=== PATIENT | male | born 1975 | race Caucasian/White ===

== ENCOUNTER 2023-09-22 20:17 | Emergency (ER) | payer BC ==
[2023-09-22] MEDS ORDERED: NA CHLORIDE 0.9% 1,000 ML ONE (21:06)
[2023-09-22] MEDS ORDERED: ONDANSETRON 4 MG/2 ML VIAL ONE (21:06)
[2023-09-22] MEDS ORDERED: MORPHINE 4 MG/ML SYR ONE (21:06)
[2023-09-22 21:10] LABS: Absolute Basophils 0.1 K/uL (0-0.5); Absolute Eosinophils 0.2 K/uL (0-0.5); Absolute Lymphocytes (CBC) 2.3 K/uL (0.7-4.9); Absolute Monocytes 1.9 K/uL (0.1-1.3); Absolute Neutrophil 11.9 K/uL (1.8-8.0); Basophils % 0.8 % (0-1.3); Eosinophils % 1.2 % (0-4.4); Hematocrit 44.6 % (39.6-49.0); Hemoglobin 14.9 g/dL (13.6-17.9); Lymphocytes % 13.8 % (15.3-44.8); MCH 31.7 pg (27.0-35.0); MCHC 33.5 g/dL (32.0-36.0); MCV 94.6 fL (80-100); MPV 8.8 fL (7.6-11.3); Monocytes % 11.8 % (3.3-12.3); Neutrophils % 72.4 % (41.7-73.7); Platelets 275 thou/uL (152-406); RBC Red Blood Cell Count 4.71 M/uL (4.33-5.43); Red Cell Distribution Width 13.8 % (12.1-15.2)
[2023-09-22] MEDS ORDERED: CIPROFLOXACIN 400mg IV 400 MG/200 ML BAG IV ONE (21:18)
[2023-09-22] MEDS ORDERED: NA CHLORIDE 0.9% 50 ML ONE (21:18)
[2023-09-22] MEDS ORDERED: METRONIDAZOLE 500mg IVPB 500 MG/100 ML BAG IV ONE (21:18)
[2023-09-22] MEDS ORDERED: CEFTRIAXONE 2000 MG/VIAL ONE (21:18)
[2023-09-22 21:37] LABS: ALT/SGPT 21 U/L (16-61); Albumin 3.7 g/dL (3.4-5.0); Albumin/Globulin Ratio 0.8 (1.1-1.8); Alkaline Phosphatase 55 U/L (45-117); Anion Gap 7.7 mEq/L (5.0-15.0); BUN Blood Urea Nitrogen 21 mg/dL (7-18); Bicarbonate 29 mEq/L (21-32); Bilirubin Total 0.5 mg/dL (0.2-1.0); Globulin 4.9 g/dL (2.3-3.5); Glomerular Filtration Rate 65 ml/min (=/>90); Glucose Level 100 mg/dL (74-106); Lipase 36 U/L (13-75); Potassium 3.7 mEq/L (3.5-5.1); Protein, Total 8.6 g/dL (6.4-8.2); Sodium Level 136 mEq/L (136-145)
[2023-09-22 21:53] LABS: AST/SGOT < 10 U/L (15-37)
--- NOTE | 2023-09-22 22:43 | RAD REPORT ---
EXAM DESCRIPTION: CTAbdomen Pelvis W Contrast - 09/22/2023 10:24 pm CLINICAL HISTORY: Abdominal pain. ABD PAIN COMPARISON: <Comparisons> TECHNIQUE: Biphasic CT imaging of the abdomen and pelvis was performed with 100 ml non-ionic IV cont rast. All CT scans are performed using dose optimization technique as appropriate and may include automated exposure control or mA/KV adjustment according to patient size. FINDINGS: The lung bases are clear. The liver, spleen, pancreas, adrenal glands and kidneys are within normal limits. No bowel obstruction, free air, free fluid or abscess. 5 cm length of the sigmoid colon in the left l ower quadrant shows moderate surrounding inflammation. There is a large diverticulum present in the r egion. The appendix is normal. No evidence of significant lymphadenopathy. No suspicious bony findings. Small fat containing left inguinal hernia. IMPRESSION: Moderately abnormal 5 cm length of sigmoid colon in the left lower quadrant with moderat e surrounding inflammation may represent acute diverticulitis. Following appropriate treatment, colon oscopy would be recommended directly visualize this region of the colon and exclude underlying neopla ana.
[2023-09-22 22:46] LABS: Specific Gravity 1.023 (1.005-1.030); Urine Bilirubin NEGATIVE (Negative); Urine Blood Negative (Negative); Urine Clarity Clear (Clear); Urine Color Light-Yellow (Yellow); Urine Glucose NEGATIVE (Negative); Urine Ketones NEGATIVE (Negative); Urine Microscopic Reflex YN NO UMIC; Urine Nitrite NEGATIVE (Negative); Urine Protein NEGATIVE (Negative); Urine Urobilinogen Normal (Normal)
--- NOTE | 2023-09-22 22:48 | EDPHYS ---
Physician Documentation [facility] Name: Sergo Bloom Age: 48 yrs Sex: Male : 1975 Arrival Date: 09/22/2023 Time: 20:17 Bed 13 Private MD: SILVIA Physician Tanner Suarez HPI: 09/21 21:05 This 48 yrs old Male presents to ER via Ambulatory with complaints of don diverticulitis flare up. 21:05 The patient presents with abdominal pain in the left upper quadrant, in the left lower don quadrant, abdominal distention in the upper abdomen, in the lower abdomen. Onset: The symptoms/episode began/occurred 3 day(s) ago. The symptoms do not radiate. Associated signs and symptoms: none. Modifying factors: The symptoms are alleviated by nothing, the symptoms are aggravated by nothing. Severity of pain: At its worst the pain was moderate today, in the emergency department the pain is unchanged. The patient has experienced similar episodes in the past, a few times. Historical: - Allergies: 20:45 NSAIDS; tl4 - Home Meds: 20:45 pantoprazole oral [Active]; tl4 - PMHx: 20:45 Gastritis; tl4 - Immunization history:: Adult Immunizations unknown. - Infectious Disease History:: Denies. - Social history:: Smoking status: Patient denies any tobacco usage or history of. - Family history:: not pertinent. ROS: 21:05 Constitutional: Negative for fever, chills, and weight loss, Eyes: Negative for injury, don pain, redness, and discharge, ENT: Negative for injury, pain, and discharge, Neck: Negative for injury, pain, and swelling, Cardiovascular: Negative for chest pain, palpitations, and edema, Respiratory: Negative for shortness of breath, cough, wheezing, and pleuritic chest pain, Back: Negative for injury and pain, : Negative for injury, bleeding, discharge, and swelling, MS/Extremity: Negative for injury and deformity, Skin: Negative for injury, rash, and discoloration, Neuro: Negative for headache, weakness, numbness, tingling, and seizure, Psych: Negative for depression, anxiety, suicide ideation, homicidal ideation, and hallucinations, Allergy/Immunology: Negative for hives, rash, and allergies, Endocrine: Negative for neck swelling, polydipsia, polyuria, polyphagia, and marked weight changes, Hematologic/Lymphatic: Negative for swollen nodes, abnormal bleeding, and unusual bruising, 21:05 Abdomen/GI: Positive for abdominal pain, of the left lower quadrant, Exam: 21:05 Constitutional: This is a well developed, well nourished patient who is awake, alert, don and in no acute distress. Head/Face: Normocephalic, atraumatic. Eyes: Pupils equal round and reactive to light, extra-ocular motions intact. Lids and lashes normal. Conjunctiva and sclera are non-icteric and not injected. Cornea within normal limits. Periorbital areas with no swelling, redness, or edema. ENT: Nares patent. No nasal discharge, no septal abnormalities noted. Tympanic membranes are normal and external auditory canals are clear. Oropharynx with no redness, swelling, or masses, exudates, or evidence of obstruction, uvula midline. Mucous membranes moist. Neck: Trachea midline, no thyromegaly or masses palpated, and no cervical lymphadenopathy. Supple, full range of motion without nuchal rigidity, or vertebral point tenderness. No Meningismus. Chest/axilla: Normal chest wall appearance and motion. Nontender with no deformity. No lesions are appreciated. Cardiovascular: Regular rate and rhythm with a normal S1 and S2. No gallops, murmurs, or rubs. Normal PMI, no JVD. No pulse deficits. Respiratory: Lungs have equal breath sounds bilaterally, clear to auscultation and percussion. No rales, rhonchi or wheezes noted. No increased work of breathing, no retractions or nasal flaring. Back: No spinal tenderness. No costovertebral tenderness. Full range of motion. Male : Normal genitalia with no discharge or lesions. Skin: Warm, dry with normal turgor. Normal color with no rashes, no lesions, and no evidence of cellulitis. MS/ Extremity: Pulses equal, no cyanosis. Neurovascular intact. Full, normal range of motion. Neuro: Awake and alert, GCS 15, oriented to person, place, time, and situation. Cranial nerves II-XII grossly intact. Motor strength 5/5 in all extremities. Sensory grossly intact. Cerebellar exam normal. Normal gait. Psych: Awake, alert, with orientation to person, place and time. Behavior, mood, and affect are within normal limits. 21:05 Abdomen/GI: Inspection: abdomen appears normal, Bowel sounds: normal, Palpation: mild abdominal tenderness, in the left lower quadrant, Liver: no appreciated palpable abnormalities, Hernia: not appreciated, Vital Signs: 20:42 BP 141 / 90; Pulse 92; Resp 16; Temp 97.8(TE); Pulse Ox 99% on R/A; Weight 98.88 kg; tl4 Height 6 ft. 0 in. ; Pain 8/10; 21:30 BP 132 / 82; Pulse 84; Resp 16; Pulse Ox 98% on R/A; cm10 22:30 BP 128 / 86; Pulse 79; Resp 16; Pulse Ox 99% on R/A; cm10 23:00 BP 131 / 79; Pulse 82; Resp 16; Pulse Ox 98% on R/A; cm10 20:42 Body Mass Index 29.57 (98.88 kg, 182.88 cm) tl4 20:42 Pain Scale: Adult tl4 Anayeli Coma Score: 21:05 Eye Response: spontaneous(4). Motor Response: obeys commands(6). Verbal Response: don oriented(5). Total: 15. MDM: 20:52 Patient medically screened. don 21:09 Differential diagnosis: diverticulitis, gastritis, non-specific abd pain, pancreatitis, don Peptic Ulcer Disease, Pyelonephritis, Ureterolithiasis, urinary tract infection. Data reviewed: vital signs, nurses notes, lab test result(s), radiologic studies, CT scan. Consideration of Admission/Observation Escalation of care including admission/observation considered. I considered the following discharge prescriptions or medication management in the emergency department Medications were administered in the Emergency Department. See MAR. Independent interpretation of the following test(s) in the Emergency Department CT Scan: My interpretation is ct abd pelvis. Care significantly affected by the following chronic conditions: Obesity, gastritis, diverticulitis. 09/21 20:52 Order name: CBC with Diff; Complete Time: 22:28 [facility] 09/21 20:52 Order name: CMP; Complete Time: 22:28 [facility] 09/21 20:52 Order name: Lipase; Complete Time: 22:28 [facility] 09/21 20:52 Order name: Urinalysis w/ reflexes [facility] 09/21 20:52 Order name: CT Abd/Pelvis - IV Contrast Only [facility] 09/21 20:52 Order name: IV Saline Lock; Complete Time: 21:19 [facility] 09/21 20:52 Order name: Labs collected and sent; Complete Time: 21:19 don Administered Medications: 21:15 Drug: NS 0.9% IV 1000 ml IV at 1 bolus Per protocol; 1000 mL bolus Route: IV; Rate: 1 cm10 bolus; Site: right antecubital; 23:37 Follow up: Response: No adverse reaction; IV Status: Completed infusion; IV Intake: cm10 1000ml 21:16 Drug: Ondansetron IVP 4 mg IVP once; over 2 minutes Route: IVP; Site: right antecubital;cm10 22:42 Follow up: Response: No adverse reaction cm10 21:16 Drug: morphine IVP or IV 4 mg IVP once over 4 mins Route: IVP; Infused Over: 4 mins; cm10 Site: right antecubital; 22:42 Follow up: Response: No adverse reaction cm10 21:24 Drug: Rocephin IV 2 grams IV at per protocol once; Given slow IV push per pharmarcy cm10 instructions Route: IV; Rate: per protocol; Site: right antecubital; 21:33 Follow up: Response: No adverse reaction; IV Status: Completed infusion; IV Intake: [id number] 21:34 Drug: metroNIDAZOLE IVPB 500 mg 100 ml IVPB at 200 ml/hr once over 30 mins Volume: 100 cm10 ml; Route: IVPB; Rate: 200 ml/hr; Infused Over: 30 mins; Site: right antecubital; 22:05 Follow up: Response: No adverse reaction; IV Status: Completed infusion; IV Intake: cm10 100ml 22:41 Drug: Ciprofloxacin IVPB 400 mg 200 ml IVPB once over 60 mins Volume: 200 ml; Route: cm10 IVPB; Infused Over: 60 mins; Site: right antecubital; 23:37 Follow up: Response: No adverse reaction; IV Status: Completed infusion; IV Intake: cm10 200ml Disposition Summary: 09/22/23 22:48 Discharge Ordered Notes: Location: Home don Problem: new don Symptoms: have improved don Condition: Stable don Diagnosis - Abdominal tenderness don - Diverticulitis of large intestine without perforation or abscess without bleeding - don 5 cm segment of sigmoid - Elevated white blood cell count don Followup: don - With: Private Physician - When: 2 - 3 days - Reason: Recheck today's complaints, Continuance of care, Re-evaluation by your physician Followup: don - With: Albino Colon MD - When: 2 - 3 days - Reason: Recheck today's complaints, Continuance of care, Re-evaluation by your physician Discharge Instructions: - Discharge Summary Sheet [facility] - Abdominal Pain, Adult don - Diverticulitis don - Diverticulitis, [id number] [facility] - Abdominal Pain, Adult, [id number] [facility] Forms: - Medication Reconciliation Form [facility] - Antibiotic Education [facility] - Prescription Opioid Use [facility] - Patient Portal Instructions [facility] - Leadership Thank You Letter [facility] Prescriptions: - Colace 100 mg Oral Tablet - take 1 tablet ORAL route every 12 hours; 14 tablet; Refills: 0, Product [facility] Selection Permitted - Flagyl 500 mg Oral Tablet - take 1 tablet ORAL route every 6 hours for 10 days; 40 tablet; Refills: 0, [facility] Product Selection Permitted - Cipro 500 mg Oral tablet - take 1 tablet ORAL route every 12 hours for 10 days; 20 tablet; Refills: 0, [facility] Product Selection Permitted - dicyclomine 20 mg Oral tablet - take 1 tablet ORAL route 4 times per day; 28 tablet; Refills: 0, Product [facility] Selection Permitted Signatures: Dispatcher [employer] Tanner Armstrong MD MD cha Martinez, Clarissa RN RN cm10 Henrique Shah RN RN tl4 Corrections: (The following items were deleted from the chart) 20:58 20:53 Test, Urine+[id number].LAB.BRZ ordered. EDFL EDMS
--- NOTE | 2023-09-22 22:48 | ER ---
Nurse's Notes [facility] Name: Srego Bloom Age: 48 yrs Sex: Male : 1975 Arrival Date: 09/22/2023 Time: 20:17 Bed 13 Private MD: Diagnosis: Abdominal tenderness;Diverticulitis of large intestine without perforation or abscess without bleeding-5 cm segment of sigmoid;Elevated white blood cell count Presentation: 09/21 20:42 Chief complaint: Patient states: Pt c/o mid-abdominal pain x 3 days. Pt states pain tl4 feels like previous diverticulitis flare up. Pt also c/o painful gas. Coronavirus screen: At this time, the client does not indicate any symptoms associated with coronavirus-19. Ebola Screen: No symptoms or risks identified at this time. Initial Sepsis Screen: Does the patient meet any 2 criteria? No. Patient's initial sepsis screen is negative. Does the patient have a suspected source of infection? No. Patient's initial sepsis screen is negative. Risk Assessment: Do you want to hurt yourself or someone else? Patient reports no desire to harm self or others. Onset of symptoms was September 19, 2023. 20:42 Method Of Arrival: Ambulatory tl4 20:42 Acuity: MIGUEL 3 tl4 Triage Assessment: 20:47 General: Appears in no apparent distress. Behavior is calm, cooperative. Pain: tl4 Complains of pain in abdomen. EENT: No signs and/or symptoms were reported regarding the EENT system. Neuro: Level of Consciousness is awake, alert, obeys commands, Oriented to person, place, time, situation. Cardiovascular: Capillary refill < 3 seconds Patient's skin is warm and dry. Respiratory: Airway is patent Respiratory effort is even, unlabored, Respiratory pattern is regular, symmetrical. GI: Reports upper abdominal pain, constipation. : No signs and/or symptoms were reported regarding the genitourinary system. Derm: No signs and/or symptoms reported regarding the dermatologic system. Musculoskeletal: No signs and/or symptoms reported regarding the musculoskeletal system. Historical: - Allergies: 20:45 NSAIDS; tl4 - Home Meds: 20:45 pantoprazole oral [Active]; tl4 - PMHx: 20:45 Gastritis; tl4 - Immunization history:: Adult Immunizations unknown. - Infectious Disease History:: Denies. - Social history:: Smoking status: Patient denies any tobacco usage or history of. - Family history:: not pertinent. Screenin:15 [facility] ED Fall Risk Assessment (Adult) History of falling in the last 3 months, cm10 including since admission No falls in past 3 months (0 pts) Confusion or Disorientation No (0 pts) Intoxicated or Sedated No (0 pts) Impaired Gait No (0 pts) Mobility Assist Device Used No (0 pt) Altered Elimination No (0 pt) Score/Fall Risk Level 0 - 2 = Low Risk Oriented to surroundings, Maintained a safe environment, Hourly rounding (assess needs \T\ fall precautionary measures) done. Abuse screen: Denies threats or abuse. Denies injuries from another. Nutritional screening: No deficits noted. Tuberculosis screening: No symptoms or risk factors identified. Assessment: 22:41 Reassessment: Patient appears in no apparent distress at this time. No changes from cm10 previously documented assessment. Patient and/or family updated on plan of care and expected duration. Pain level reassessed. Patient is alert, oriented x 3, equal unlabored respirations, skin warm/dry/pink. 22:49 General: Awaiting completion of ABX for discharge.. cm10 23:56 Reassessment: Patient appears in no apparent distress at this time. No changes from cm10 previously documented assessment. Patient and/or family updated on plan of care and expected duration. Pain level reassessed. Patient is alert, oriented x 3, equal unlabored respirations, skin warm/dry/pink. Patient states feeling better. Patient states symptoms have improved. Vital Signs: 20:42 BP 141 / 90; Pulse 92; Resp 16; Temp 97.8(TE); Pulse Ox 99% on R/A; Weight 98.88 kg; tl4 Height 6 ft. 0 in. ; Pain 8/10; 21:30 BP 132 / 82; Pulse 84; Resp 16; Pulse Ox 98% on R/A; cm10 22:30 BP 128 / 86; Pulse 79; Resp 16; Pulse Ox 99% on R/A; cm10 23:00 BP 131 / 79; Pulse 82; Resp 16; Pulse Ox 98% on R/A; cm10 20:42 Body Mass Index 29.57 (98.88 kg, 182.88 cm) tl4 20:42 Pain Scale: Adult tl4 Anayeli Coma Score: 21:05 Eye Response: spontaneous(4). Motor Response: obeys commands(6). Verbal Response: don oriented(5). Total: 15. ED Course: 20:22 Patient arrived in ED. im 20:45 Triage completed. tl4 20:48 Arm band placed on right wrist. tl4 20:52 Tanner Suarez MD is Attending Physician. don 21:03 Inserted saline lock: 20 gauge in right antecubital area, using aseptic technique. kj2 Blood collected. 21:03 Initial lab(s) drawn, by ED staff, sent to lab. cm10 21:15 Georgia Araujo, RN is Primary Nurse. cm10 21:15 Patient has correct armband on for positive identification. Placed in gown. Bed in low cm10 position. Call light in reach. Side rails up X2. Provided Education on: ER process and procedures.. Pulse ox on. NIBP on. 22:25 CT Abd/Pelvis - IV Contrast Only In Process Unspecified. EDMS 22:42 Urinalysis w/ reflexes Sent. cm10 22:47 Albino Colon MD is Referral Physician. don 23:56 No provider procedures requiring assistance completed. IV discontinued, intact, cm10 bleeding controlled, No redness/swelling at site. Pressure dressing applied. Administered Medications: 21:15 Drug: NS 0.9% IV 1000 ml IV at 1 bolus Per protocol; 1000 mL bolus Route: IV; Rate: 1 cm10 bolus; Site: right antecubital; 23:37 Follow up: Response: No adverse reaction; IV Status: Completed infusion; IV Intake: cm10 1000ml 21:16 Drug: Ondansetron IVP 4 mg IVP once; over 2 minutes Route: IVP; Site: right antecubital;cm10 22:42 Follow up: Response: No adverse reaction cm10 21:16 Drug: morphine IVP or IV 4 mg IVP once over 4 mins Route: IVP; Infused Over: 4 mins; cm10 Site: right antecubital; 22:42 Follow up: Response: No adverse reaction cm10 21:24 Drug: Rocephin IV 2 grams IV at per protocol once; Given slow IV push per pharmarcy cm10 instructions Route: IV; Rate: per protocol; Site: right antecubital; 21:33 Follow up: Response: No adverse reaction; IV Status: Completed infusion; IV Intake: [id number] 21:34 Drug: metroNIDAZOLE IVPB 500 mg 100 ml IVPB at 200 ml/hr once over 30 mins Volume: 100 cm10 ml; Route: IVPB; Rate: 200 ml/hr; Infused Over: 30 mins; Site: right antecubital; 22:05 Follow up: Response: No adverse reaction; IV Status: Completed infusion; IV Intake: cm10 100ml 22:41 Drug: Ciprofloxacin IVPB 400 mg 200 ml IVPB once over 60 mins Volume: 200 ml; Route: cm10 IVPB; Infused Over: 60 mins; Site: right antecubital; 23:37 Follow up: Response: No adverse reaction; IV Status: Completed infusion; IV Intake: cm10 200ml Medication: 23:56 VIS not applicable for this client. cm10 Intake: 21:33 IV: 50ml; Total: 50ml. cm10 22:05 IV: 100ml; Total: 150ml. cm10 23:37 IV: 200ml; Total: 350ml. cm10 23:37 IV: 1000ml; Total: 1350ml. cm10 Outcome: 22:48 Discharge ordered by MD. ochoa 23:56 Discharged to home ambulatory, cm10 23:56 Condition: good 23:56 Discharge instructions given to patient, Instructed on discharge instructions, follow up and referral plans. medication usage, Demonstrated understanding of instructions, follow-up care, medications, Prescriptions given X 4, 23:57 Patient left the ED. cm10 Signatures: Dispatcher [employer] EDTanner Carmichael MD MD cha Mendoza, Itzel im Martinez, Clarissa RN RN cm10 Henrique Shah RN RN tl4 Rose Marie Mcmullen RN RN kj2
[2023-09-23 00:56] VITALS: BP 131/79; TEMP 97.8; O2SAT 98
== END 2023-09-22 23:57 | disposition home or self-care (01) ==
LOC: ER 20:17
DX: K57.32 Diverticulitis of large intestine without perforation or abscess without bleeding (principal); D72.829 Elevated white blood cell count, unspecified
CPT/HCPCS: 96365; 96367; 96361; 85025; 36415; 81003; 83690; 80053; 74177; 96375; 99284; Q9967; J2405; J0696; J0744; J7030